=== PATIENT | male | born 2000 | race Two or more races ===

== ENCOUNTER 2022-08-26 20:49 | Emergency (ER) | payer BC ==
[2022-08-26 21:29] VITALS: BP 145/95; PULSE 92; RESP 20; TEMP 98.4; BMI 23.2
[2022-08-26] MEDS ORDERED: ACETAMINOPHEN 1000 MG/100 ML BAG IVPB ONE (23:10)
[2022-08-26] MEDS ORDERED: SODIUM CHLORIDE 0.9% 1000 ML INFUS.BAG IV ONE (23:10)
[2022-08-26] MEDS ORDERED: METOCLOPRAMIDE HCL INJECTION 10 MG/2 ML VIAL IVPUSH ONE (23:10)
[2022-08-26] MEDS ORDERED: ACETAMINOPHEN INJECTION 100 ML IVPB ONE (23:30)
[2022-08-26] MEDS ORDERED: METOCLOPRAMIDE HCL INJECTION 10 MG/2 ML VIAL ONE (23:30)
[2022-08-27 00:28] LABS: BASO % 0.4 % (0-2.0); HEMATOCRIT 47.9 % (35.4-49); HEMOGLOBIN 16.1 GM/dL (11.7-16.9); MCHC 33.7 g/dl (32.0-35.9); MEAN CELL VOLUME 83.1 fl (80-96); MEAN PLT VOLUME 6.7 fl (7.5-11.1); MONO % 7.5 % (3.8-10.2); NEUT % 65.1 % (42.8-82.8); PLATELET COUNT 346 10^3/uL (134-434); RBC 5.77 M/mm3 (4.00-5.60); RDW 13.4 % (11.9-15.9); WHITE BLOOD COUNT 10.1 K/mm3 (4.0-10.0)
[2022-08-27 00:49] LABS: ALBUMIN 4.8 g/dl (3.4-5.0); CALCIUM 9.2 mg/dL (8.5-10.1)
[2022-08-27 00:50] LABS: BLOOD UREA NITROGEN 15.8 mg/dL (7-18)
[2022-08-27 00:53] LABS: CREATININE 1.2 mg/dL (0.55-1.3)
[2022-08-27 00:54] LABS: TOT PROT 7.3 g/dl (6.4-8.2)
[2022-08-27 01:00] LABS: BILIRUBIN,TOTAL 0.7 mg/dL (0.2-1)
== END 2022-08-27 01:36 | disposition home or self-care (01) ==
LOC: JER 20:49
PROC: 3E033GC Introduction of Other Therapeutic Substance into Peripheral Vein, Percutaneous Approach (ICD-10-PCS; principal; 2022-08-26)
DX: R51.9 Headache, unspecified (principal); H57.12 Ocular pain, left eye
CPT/HCPCS: 36415; 70450-TC; 80053; 85025; 99285-25